=== PATIENT | male | born 1955 | race Hispanic/Latino ===

== ENCOUNTER 2023-03-15 22:34 | Emergency (ER) | payer OTHER ==
[~2023-03-15] VITALS: Ht 180.3 cm; Wt 81.6 kg
[2023-03-16 00:28] VITALS: BP 134/74; PULSE 71; RESP 16; O2SAT 98
== END 2023-03-16 00:38 | disposition home or self-care (01) ==
LOC: EDH 22:34
DX: T83.091A Other mechanical complication of indwelling urethral catheter, initial encounter (principal); I10 Essential (primary) hypertension; Z87.442 Personal history of urinary calculi
CPT/HCPCS: 51702